=== PATIENT | female | born 1995 | race African-American/Black ===

== ENCOUNTER 2018-01-23 21:11 | Emergency (ER) | payer OTHER ==
[~2018-01-23] VITALS: Ht 157.5 cm; Wt 55.3 kg
[2018-01-23] MEDS ORDERED: MOBIC7.5 MG PO (22:13)
[2018-01-23 23:07] VITALS: BP 142/49
[2018-01-23] MEDS ORDERED: FLOVENT HFA 4444 MCG INH (23:11)
[2018-01-23] MEDS ORDERED: VENTOLIN HFA INH8 GM INH (23:11)
== END 2018-01-23 23:13 | disposition home or self-care (01) ==
LOC: ER 21:11
DX: S93.491A Sprain of other ligament of right ankle, initial encounter (principal); Z88.6 Allergy status to analgesic agent; W18.39XA Other fall on same level, initial encounter; Y93.89 Activity, other specified; Y92.59 Other trade areas as the place of occurrence of the external cause; Y99.8 Other external cause status